=== PATIENT | male | born 1990 | race Caucasian/White ===

== ENCOUNTER 2018-08-03 05:49 | Emergency (ER) | payer BC ==
[~2018-08-03] VITALS: Ht 167.6 cm; Wt 75.3 kg
[2018-08-03] MEDS ORDERED: SYNTHROID75 MCG (05:58)
[2018-08-03] MEDS ORDERED: REMERON15 MG (05:59)
[2018-08-03] MEDS ORDERED: KETO10TA2 PO (08:46)
== END 2018-08-03 09:53 | disposition home or self-care (01) ==
LOC: ER 05:49
DX: S52.591A Other fractures of lower end of right radius, initial encounter for closed fracture (principal); W01.198A Fall on same level from slipping, tripping and stumbling with subsequent striking against other object, initial encounter; Y93.89 Activity, other specified; Y92.89 Other specified places as the place of occurrence of the external cause; Y99.8 Other external cause status